=== PATIENT | female | born 1985 | race Caucasian/White ===

== ENCOUNTER → 2019-04-16 | Outpatient (CLI) | payer OTHER ==
--- NOTE | 2019-04-17 13:06 | US ---
EXAMINATION TYPE: Transabdominal DATE OF EXAM: 04/16/2019 4:50 PM COMPARISON: NONE CLINICAL HISTORY: Z36 Confirm dates. G1 EXAM PERFORMED: Transabdominal (TA) EXAM MEASUREMENTS: GESTATIONAL AGE / DATING Physician Established: Not yet established Dates by LMP: (10 weeks/1 day) EDC: 11/10/2009 Dates by First Scan: No previous. Dates by Current Scan for: (10 weeks/3 days) EDC: 11/09/2019 MATERNAL ANATOMY Uterus: 12.7 x 7.6 x 6.1cm ; possible uterine fibroid(s) in upper uterus Right Ovary: 2.8 x 2.1 x 2.1cm Left Ovary: not seen Post CDS / Adnexa: wnl Presence of free fluid: no Presence of corpus luteal cyst: not identified Presence of subchorionic bleed: small hypoechoic area seen superior subchorionic area = 1.1 x 0.9 x 0 .8cm. GESTATION / SURVEY CRL: 3.6cm (10 weeks/3 days) Yolk Sac (normal less than 6mm): 5.4mm Heart Rate: 172 bpm Rhythm: Normal IUP: single Date of LMP: 02/04/2019 Beta HcG (if available): NA Single, live IUP,10 weeks/3 days, EDC: 11/09/2019, HR 172bpm; possible subchorionic bleed imaged as s mall hypoechoic area seen superior subchorionic area = 1.1 x 0.9 x 0.8cm; lobular appearance to upper uterus may be uterine fibroid(s). IMPRESSION: 1. Single intrauterine gestation estimated at 10 weeks 3 days gestation based on the crown-rump lengt h. Cardiac activity measures 172 bpm. 2. There may be a uterine fibroid in the upper body of the uterus. 3. 1.1 x 0.9 x 0.8 cm subchorionic hemorrhage.
== END | disposition home or self-care (01) ==
LOC: RADUSWWP 16:13
PROVIDERS: ATTEND Obstetrics & Gynecology
DX: Z36.89 Encounter for other specified antenatal screening (principal); O20.8 Other hemorrhage in early pregnancy; Z3A.10 10 weeks gestation of pregnancy
CPT/HCPCS: 76801

== ENCOUNTER → 2019-06-17 | Outpatient (CLI) | payer BC, OTHER ==
--- NOTE | 2019-06-18 07:48 | US ---
EXAMINATION TYPE: US OB anatomy transabd DATE OF EXAM: 06/17/2019 COMPARISON: First trimester ultrasound April 16, 2019 HISTORY: O36.62X0 Large for dates 2nd trimester LGA TECHNIQUE: OBTA EXAM MEASUREMENTS: GESTATIONAL AGE / DATING Physician Established: (19 weeks/0 days) EDC: 11/11/2019 Dates by LMP: unknown Dates by First Scan: (19 weeks/2 days) EDC: 11/09/2019 Dates by Current Scan for: (19 weeks/6 days) EDC: 11/05/2019 SURVEY IUP: Single PLACENTA: Anterior PREVIA: No previa LULI: 15.4 cm Normal CERVICAL LENGTH (transabdominal: norm > 3.0cm): 3.2 cm BIOMETRY PRESENTATION: Vertex LIE: Longitudinal BPD: 4.5 cm 19 weeks / 5 days HC: 17.0 cm 19 weeks / 5 days AC: 14.1 cm 19 weeks / 4 days FL: 3.2 cm 20 weeks / 0 days ESTIMATED WEIGHT IN GRAMS: 307 grams ESTIMATED WEIGHT IN LBS/OZ: 0 lbs. 11 oz. WEIGHT PERCENTAGE BASED ON ESTABLISHED DATE: 84 % HC/AC: 1.2 Normal FL/AC: 23 Normal HEART RATE: 153 bpm RHYTHM: Normal ANATOMY SEEN (within normal limits): * Lateral Vent (< 1 cm) 0.8 cm * Cisterna Magna (< 1.1 cm) 0.7 cm * Nuchal Fold (< 0.6 cm) 0.2 cm * Cerebellum (varies with age) 20.8 cm Choroid Plexus (bilateral) Midline Falx Cavus Septi Pellucidi Four Chamber Heart Outflow tracts: LVOT/RVOT Stomach Situs Diaphragm Kidneys (bilateral) Bladder Cord Insert Three Vessel Cord Longitudinal Spine Transverse Spine Arms (bilateral) Legs (bilateral) ANATOMY NOT SEEN: Nose / Lips Single live intrauterine gestation is redemonstrated. No cervical thinning. Normal cephalad presentat ion seen currently. No ultrasound evidence for placenta previa. Amniotic fluid index calculated withi n normal limits. biometry measurements congruent within normal limits. Detailed anatomical surv ey shows no suspicious abnormality during real-time scanning. Suboptimal visualization of both upper extremities particularly on 2 images saved. Suboptimal evaluation of the nose and lips noted. IMPRESSION: As above.
== END | disposition home or self-care (01) ==
LOC: RADUSWWP 16:08
PROVIDERS: ATTEND Obstetrics & Gynecology
DX: O36.62X0 Maternal care for excessive fetal growth, second trimester, not applicable or unspecified (principal); Z3A.19 19 weeks gestation of pregnancy
CPT/HCPCS: 76811

== ENCOUNTER 2019-11-01 23:45 | Inpatient (IN) | payer BC, OTHER ==
[2019-11-02] MEDS ORDERED: CARBOPROST TROMETHAMINE 250 MCG/ML 1 ML AMP IM PRN (01:06)
[2019-11-02] MEDS ORDERED: TERBUTALINE 1 MG/ML VIAL SQ PRN (01:06)
[2019-11-02] MEDS ORDERED: AMPICILLIN 2,000 MG in SODIUM CHLORIDE 0.9% 100 ML IVPB STA (01:06)
[2019-11-02] MEDS ORDERED: OXYTOCIN 10 UNIT/ML 1 ML VIAL IM PRN (01:06)
[2019-11-02] MEDS ORDERED: METHYLERGONOVINE 0.2 MG/ML 1 ML AMP IM PRN (01:06)
[2019-11-02] MEDS ORDERED: LIDOCAINE 0.5% (PF) 5 MG/ML (50 ML SDV) SQ PRN (01:06)
[2019-11-02] MEDS: LACTATED RINGERS 1,000 ML IV SCH ×4 (01:57→07:07)
[2019-11-02 02:05] LABS: Basophils % (A) 0 %; Eosinophils # (A) 0.2 k/uL (0-0.7); Eosinophils % (A) 1 %; HCT 39.6 % (34.0-46.0); HGB 13.7 gm/dL (11.4-16.0); Lymphocytes # (A) 2.4 k/uL (1.0-4.8); Lymphocytes % (A) 18 %; MCH 33.1 pg (25.0-35.0); MCHC 34.5 g/dL (31.0-37.0); MCV 95.7 fL (80.0-100.0); Mean Platelet Volume 8.5; Monocytes # (A) 0.5 k/uL (0-1.0); Monocytes % (A) 4 %; Neutrophils # (A) 9.8 k/uL (1.3-7.7); Neutrophils % (A) 75 %; Platelet Count 289 k/uL (150-450); RBC 4.14 m/uL (3.80-5.40); RDW 13.9 % (11.5-15.5); WBC 13.1 k/uL (3.8-10.6)
[2019-11-02] MEDS ORDERED: fentaNYL (PF) 50 MCG/ML 5 ML AMP ONE (03:36)
[2019-11-02] MEDS ORDERED: SODIUM CHLORIDE 0.9% 100 ML BAG ONE (03:36)
[2019-11-02] MEDS ORDERED: ROPIVACAINE 5MG/ML 20ML VIAL ONE (03:36)
[2019-11-02] MEDS: AMPICILLIN 1,000 MG in SODIUM CHLORIDE 0.9% 50 ML IVPB SCH ×2 (05:50→09:09)
[2019-11-02] MEDS ORDERED: SIMETHICONE 80 MG CHEWABLE PO PRN (10:03)
[2019-11-02] MEDS ORDERED: ZOLPIDEM 5 MG TAB PO PRN (10:03)
[2019-11-02] MEDS ORDERED: WITCH HAZEL 1 EACH MED..PAD TOPICAL PRN (10:03)
[2019-11-02] MEDS ORDERED: diphenhydrAMINE 50 MG CAP PO PRN (10:03)
[2019-11-02] MEDS ORDERED: HYDROCORTISONE 2.5% RECTAL CREAM 30 GM TUBE RECTAL PRN (10:03)
[2019-11-02] MEDS ORDERED: BENZOCAINE/MENTHOL SPRAY 1 GM/SPRAY AEROSOL TOPICAL PRN (10:03)
[2019-11-02] MEDS ORDERED: IBUPROFEN 600 MG TAB PO PRN (10:03)
[2019-11-02] MEDS ORDERED: LANOLIN CREAM 5 GM TUBE TOPICAL PRN (10:03)
[2019-11-02] MEDS ORDERED: diphenhydrAMINE 25 MG CAP PO PRN (10:03)
[2019-11-02] MEDS ORDERED: ACETAMINOPHEN TAB 325 MG TAB PO PRN (10:03)
[2019-11-02] MEDS ORDERED: OXYTOCIN 20 UNITS/1000 ML NS 1,000 ML IV SCH (10:15)
[2019-11-02] MEDS ORDERED: SENNOSIDES-DOCUSATE SODIUM 1 EACH TAB PO SCH (20:00)
[2019-11-03 05:43] LABS: Basophils % (A) 0 %; Eosinophils # (A) 0.1 k/uL (0-0.7); Eosinophils % (A) 1 %; HCT 29.2 % (34.0-46.0); Lymphocytes # (A) 2.3 k/uL (1.0-4.8); Lymphocytes % (A) 16 %; MCH 32.7 pg (25.0-35.0); MCHC 33.8 g/dL (31.0-37.0); MCV 96.7 fL (80.0-100.0); Mean Platelet Volume 8.4; Monocytes # (A) 0.4 k/uL (0-1.0); Monocytes % (A) 3 %; Neutrophils # (A) 11.6 k/uL (1.3-7.7); Neutrophils % (A) 79 %; Platelet Count 227 k/uL (150-450); RBC 3.02 m/uL (3.80-5.40); WBC 14.7 k/uL (3.8-10.6)
[2019-11-03 05:53] LABS: HGB 9.9 gm/dL (11.4-16.0)
[2019-11-03 08:14] VITALS: BP 121/80; PULSE 77; RESP 18; TEMP 97.8
--- NOTE | 2019-11-03 08:22 | P.HPOB ---
History of Present Illness H&P Date: 11/02/19 Chief Complaint: Normal labor 34-year-old presented at 38 weeks and 5 days in active labor. heart tones category 1. She was admitted by Dr. Nolan overnight. When I presented to the hospital she was 7 cm dilated, 90% effaced, and -2 station. She is coy every 2-4 minutes and feeling pressure despite an epidural. Review of Systems All systems: negative Constitutional: Denies chills, Denies fever Eyes: denies blurred vision, denies pain Ears, nose, mouth and throat: Denies headache, Denies sore throat Cardiovascular: Denies chest pain, Denies shortness of breath Respiratory: Denies cough Gastrointestinal: Denies abdominal pain, Denies diarrhea, Denies nausea, Denies vomiting Genitourinary: Denies dysuria, Denies hematuria Musculoskeletal: Denies myalgias Integumentary: Denies pruritus, Denies rash Neurological: Denies numbness, Denies weakness Psychiatric: Denies anxiety, Denies depression Endocrine: Denies fatigue, Denies weight change Past Medical History Past Medical History: No Reported History Additional Past Medical History / Comment(s): Obstetric history: She's had care with me since the first trimester. Blood type O+, rubella immune, is B-, GBS positive. History of Any Multi-Drug Resistant Organisms: None Reported Past Surgical History: No Surgical Hx Reported Past Anesthesia/Blood Transfusion Reactions: No Reported Reaction Past Psychological History: No Psychological Hx Reported Smoking Status: Never smoker Past Alcohol Use History: None Reported Past Drug Use History: None Reported - Past Family History Father Family Medical History: No Reported History Medications and Allergies Home Medications Medication Instructions Recorded Confirmed Type Pnv No.95/Ferrous Fum/Folic AC 1 each PO DAILY 11/01/19 11/01/19 History [ Multivitamin Tablet] Allergies Allergy/AdvReac Type Severity Reaction Status Date / Time No Known Allergies Allergy Verified 11/01/19 23:53 Exam Osteopathic Statement: *. No significant issues noted on an osteopathic structural exam other than those noted in the History and Physical/Consult. Vital Signs Temp Pulse Resp BP Pulse Ox 11/03/19 08:00 97.8 F 77 18 121/80 98 11/03/19 04:00 97.7 F 78 16 130/75 11/03/19 00:00 98.0 F 76 18 132/76 11/02/19 22:20 89 18 11/02/19 20:00 97.9 F 89 18 125/82 11/02/19 16:00 98.3 F 82 18 124/82 11/02/19 11:15 98.4 F 89 18 131/70 11/02/19 10:45 98.8 F 92 18 111/70 11/02/19 10:15 98.4 F 80 18 124/72 11/02/19 10:00 90 119/65 11/02/19 09:45 99.1 F 83 18 124/70 11/02/19 09:30 98.6 F 83 18 124/70 11/02/19 09:15 98.3 F 83 18 123/61 Intake and Output 11/02/19 11/03/19 11/03/19 22:59 06:59 14:59 Other: # Voids 2 2 Heart: Regular rate and rhythm Lungs: Clear to auscultation bilaterally Abdomen: Soft, nontender Extremities: Negative Homans sign Results Result Diagrams: 11/03/19 05:28 Abnormal Lab Results - Last 24 Hours (Table) 11/03/19 Range/Units 05:28 WBC 14.7 H (3.8-10.6) k/uL RBC 3.02 L (3.80-5.40) m/uL Hgb 9.9 L D (11.4-16.0) gm/dL Hct 29.2 L (34.0-46.0) % Neutrophils # 11.6 H (1.3-7.7) k/uL Assessment and Plan (1) Normal labor Current Visit: Yes Status: Acute Code(s): O80 - ENCOUNTER FOR FULL-TERM UNCOMPLICATED DELIVERY; Z37.9 - OUTCOME OF DELIVERY, UNSPECIFIED SNOMED Code(s): 81831611 Plan: 1. Expectant management 2. She has been started on antibiotics for GBS prophylaxis 3. Anticipate normal vaginal delivery
--- NOTE | 2019-11-03 08:26 | P.PROBDLV ---
Vaginal Delivery Note - . Vaginal Delivery Note: 34-year-old presents at 38 weeks and 5 days in active labor. heart tones were category 1. She was started on IV antibiotics and given an epidural for pain control. She did have a deceleration after the epidural. Dr. Nolan went in to see her, perform scalp stimulation and the baby did reactive in a positive fashion. Amniotomy was performed at 7:25 AM and meconium stained fluid was seen. Her cervix was completely dilated by 844. She pushed, and delivered a viable male infant over intact perineum under epidural anesthesia at 8:50 AM. Head delivered OA, anterior shoulder delivered gentle downward guidance of a posterior shoulder and rest of body. Nose and mouth bulb suctioned, cord clamped and cut, infant placed on mother's abdomen. Apgars 9, 9, weight 7 lbs. 11 oz. Placenta delivered spontaneously, intact with three-vessel cord at 9:01 AM. Vagina, cervix, perineum inspected. A left lateral second-degree laceration was repaired with 2-0 Vicryl and 3-0 Vicryl. Estimated blood loss 350 mL. Mother and baby in stable condition.
--- NOTE | 2019-11-03 08:28 | P.DS ---
Providers Date of admission: 11/02/19 01:25 Expected date of discharge: 11/03/19 Attending physician: Radha Gordillo Primary care physician: Stated None - Discharge Diagnosis(es) (1) Normal labor Current Visit: Yes Status: Resolved (2) Normal vaginal delivery Current Visit: Yes Status: Acute Hospital Course: Patient presented in active labor. She underwent a normal vaginal delivery. course was uncomplicated. She'll be discharged home day #1 in stable condition to follow-up with me in 6 weeks. Plan - Discharge Summary New Discharge Prescriptions: New Ibuprofen [Motrin] 600 mg PO Q6HR PRN #30 tab PRN Reason: Mild Pain Or Fever >= 100.5 No Action Pnv No.95/Ferrous Fum/Folic AC [ Multivitamin Tablet] 1 each PO DAILY Discharge Medication List Pnv No.95/Ferrous Fum/Folic AC [ Multivitamin Tablet] 1 each PO DAILY 11/01/19 [History] Ibuprofen [Motrin] 600 mg PO Q6HR PRN #30 tab 11/03/19 [Rx] Follow up Appointment(s)/Referral(s): Radha Gordillo DO [Doctor of Osteopathic Medicine] - 6 Weeks Discharge Disposition: HOME SELF-CARE
== END 2019-11-03 11:30 | disposition home or self-care (01) | DRG 807 ==
LOC: FBPOP 23:45 → 4FBP 11-02 01:25
PROVIDERS: ADMIT Obstetrics & Gynecology; ATTEND Obstetrics & Gynecology
PROC: 3E0R3BZ Introduction of Anesthetic Agent into Spinal Canal, Percutaneous Approach (ICD-10-PCS; principal; 2019-11-03)
PROC: 0KQM0ZZ Repair Perineum Muscle, Open Approach (ICD-10-PCS; principal; 2019-11-03)
PROC: 10E0XZZ Delivery of Products of Conception, External Approach (ICD-10-PCS; principal; 2019-11-03)
PROC: 00HU33Z Insertion of Infusion Device into Spinal Canal, Percutaneous Approach (ICD-10-PCS; principal; 2019-11-03)
DX: O77.0 Labor and delivery complicated by meconium in amniotic fluid (principal); Z37.0 Single live birth; O70.1 Second degree perineal laceration during delivery; O99.824 Streptococcus B carrier state complicating childbirth; Z3A.38 38 weeks gestation of pregnancy
CPT/HCPCS: 59025; 85025; 86850; 86900; 86901; 99213

== ENCOUNTER 2020-09-25 | Emergency (ER) | payer BC, OTHER ==
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
== END 2020-09-25 18:04 | disposition home or self-care (01) ==
CPT/HCPCS: 99283

== ENCOUNTER 2021-03-24 03:25 | Outpatient (CLI) | payer BC ==
[2021-03-24 06:21] VITALS: BP 125/85; PULSE 92; RESP 16; TEMP 96.7
--- NOTE | 2021-03-28 07:47 | P.MSEPDOC ---
Presenting Problems - Arrival Data Date of Arrival on Unit: 03/24/21 Time of Arrival on Unit: 03:25 Mode of Transport: Ambulatory - Complaint OB-Reason for Admission/Chief Complaint: Vaginal Bleeding Medical History - Information : 2 Para: 1 Term: 1 : 0 Abortions: Spontaneous or Elective: 0 Number of Living Children: 1 - Gestational Age Gestational Age by AMY (wks/days): 38 Weeks and 3 Days Review of Systems - Review of Systems Constitutional: No problems Breast: No problems ENT: No problems Cardiovascular: No problems Respiratory: No problems Gastrointestinal: No problems Genitourinary: No problems Musculoskeletal: No problems Neurological: No problems Skin: No problems Vital Signs - Temperature Temperature: 96.7 F Temperature Source: Temporal Artery Scan - Pulse Right Supine Brachial Pulse Rate: 92 Pulse Assessment Method: Automatic Cuff - Respirations Respiratory Rate: 16 Oxygen Delivery Method: Room Air - Blood Pressure Right Arm Supine Blood Pressure: 125/85 Blood Pressure Mean: 98 Blood Pressure Source: Automatic Cuff Medical Screen Scoring - Cervical Exam Dilation (cm): 3 Effacement (%): 70 Station: -2 Membranes: Intact - Uterine Contractions Frequency From (mins): 6 Frequency To (mins): 10 Duration From (seconds): 40 Duration To (seconds): 70 Intensity: Moderate Resting: Soft to palpation - Assessment - Baby A Baseline FHR: 135 Heart Rate - NICHD Category: Category I (Normal) NST: Reactive Physician Notification - Physician Notified Physician Notified Date: 03/24/21 Physician Notified Time: 04:10 Physician: Kapil Huerta Order Received: Yes (Observe for 1 hour re-check and call back) Maternal Triage Index - Maternal Triage Index Presenting for scheduled procedure w/no complaint: No - Stat/Priority 1 Stat Priority 1: No - Urgent/Priority 2 Urgent Priority 2: Yes Provider Notified: Kapil Huerta Provider Notified Time: 04:10 Criteria Met for Priority 2: States active bleeding - Prompt/Priority 3 Prompt Priority 3: No - Non-Urgent/Priority 4 Non-Urgent Priority 4: No Disposition - Disposition OB Disposition: Observe, Discharge to home Discharge Date: 03/24/21 Discharge Time: 05:25 I agree with the RN Medical Screening Exam: Yes Case reviewed; plan agreed upon as documented in EMR&OBIX.: Yes Diagnosis: FALSE LABOR AT OR AFTER 37 COMPLETED WEEKS OF GESTATION
== END 2021-03-24 05:25 | disposition home or self-care (01) ==
LOC: FBPOP 03:25
PROVIDERS: ATTEND Obstetrics & Gynecology
DX: O47.1 False labor at or after 37 completed weeks of gestation (principal); Z3A.38 38 weeks gestation of pregnancy
CPT/HCPCS: 59025; 99214

== ENCOUNTER 2021-03-24 18:33 | Inpatient (IN) | payer BC ==
[2021-03-24] MEDS ORDERED: OXYTOCIN 10 UNIT/ML 1 ML VIAL IM PRN (18:59)
[2021-03-24] MEDS ORDERED: LIDOCAINE 0.5% (PF) 5 MG/ML (50 ML SDV) SQ PRN (18:59)
[2021-03-24] MEDS ORDERED: TERBUTALINE 1 MG/ML VIAL SQ PRN (18:59)
[2021-03-24] MEDS ORDERED: CARBOPROST TROMETHAMINE 250 MCG/ML 1 ML AMP IM PRN (18:59)
[2021-03-24] MEDS ORDERED: METHYLERGONOVINE 0.2 MG/ML 1 ML AMP IM PRN (18:59)
[2021-03-24 19:09] LABS: Basophils % (A) 0 %; Eosinophils # (A) 0.1 k/uL (0-0.7); Eosinophils % (A) 1 %; HCT 33.8 % (34.0-46.0); HGB 11.8 gm/dL (11.4-16.0); Lymphocytes % (A) 15 %; MCH 33.9 pg (25.0-35.0); MCV 96.9 fL (80.0-100.0); Mean Platelet Volume 7.8; Monocytes # (A) 0.3 k/uL (0-1.0); Monocytes % (A) 2 %; Neutrophils # (A) 10.4 k/uL (1.3-7.7); Neutrophils % (A) 80 %; Platelet Count 262 k/uL (150-450); RBC 3.49 m/uL (3.80-5.40); RDW 14.9 % (11.5-15.5); WBC 13.1 k/uL (3.8-10.6)
[2021-03-24] MEDS: LACTATED RINGERS 1,000 ML IV SCH ×2 (19:15→20:05)
[2021-03-24] MEDS ORDERED: AMPICILLIN 2,000 MG in SODIUM CHLORIDE 0.9% 100 ML IVPB STA (19:31)
--- NOTE | 2021-03-24 19:32 | P.HPOB ---
History of Present Illness H&P Date: 03/24/21 Chief Complaint: Contractions This patient is a pleasant 35-year-old 2 para 1 female estimated date of confinement 04/04/2021 estimated gestational age 38-3/7 weeks who presents to labor and delivery with complaint of contractions. Patient was here earlier this morning and was 3 cm dilated is now 8-9 cm dilated to be in active labor. care is per Dr. Gordillo. is complicated by advanced for maternal age and apparently patient has declined testing. Most recent ultrasound on March 07 showed estimated weight of 5 lbs. 15 oz. which is the 39th percentile. Review of Systems Genitourinary: Reports Menstruation: Reports amenorrhea Past Medical History Past Medical History: No Reported History Additional Past Medical History / Comment(s): Previous term vaginal delivery. She had a positive group B strep with that History of Any Multi-Drug Resistant Organisms: None Reported Past Surgical History: No Surgical Hx Reported Past Anesthesia/Blood Transfusion Reactions: No Reported Reaction Smoking Status: Never smoker - Past Family History Father Family Medical History: No Reported History Medications and Allergies Home Medications Medication Instructions Recorded Confirmed Type Pnv No.95/Ferrous Fum/Folic AC 1 each PO DAILY 11/01/19 03/24/21 History [ Multivitamin Tablet] Allergies Allergy/AdvReac Type Severity Reaction Status Date / Time No Known Allergies Allergy Verified 03/24/21 18:59 Exam Intake and Output 03/24/21 03/24/21 03/24/21 06:59 14:59 22:59 Other: Weight 93.894 kg - OBG Physical Exam Abdomen: bowel sounds normal, no diffuse tenderness, no bruit present, no guarding noted, no hepatomegaly, no splenomegaly, no mass Vulva: both: normal Vagina: normal moisture, no discharge Cervix: no lesion (Cervix is 8 cm dilated and -1 station), no discharge Uterus: enlarged Results blood work shows she is O positive, rubella immune, RPR nonreactive, hepatitis B negative, group B strep was negative (however does have a history of positive strep first ). Patient apparently declined genetic testing Result Diagrams: 03/24/21 19:00 Abnormal Lab Results - Last 24 Hours (Table) 03/24/21 Range/Units 19:00 WBC 13.1 H (3.8-10.6) k/uL RBC 3.49 L (3.80-5.40) m/uL Hct 33.8 L (34.0-46.0) % Neutrophils # 10.4 H (1.3-7.7) k/uL Assessment and Plan Assessment: This is a pleasant 35-year-old 2 para 1 female 38-3/7 weeks gestation admitted to labor and delivery in active labor. Patient is a history of positive group B strep with her first therefore we'll treat prophylactically with antibiotics. Patient does request epidural for pain control will place that prior to rupture membranes. Anticipate vaginal delivery. (1) 38 weeks gestation of Current Visit: Yes Status: Acute Code(s): Z3A.38 - 38 WEEKS GESTATION OF SNOMED Code(s): 30097254 (2) History of group B Streptococcus (GBS) infection Current Visit: Yes Status: Acute Code(s): Z86.19 - PERSONAL HISTORY OF OTHER INFECTIOUS AND PARASITIC DISEASES SNOMED Code(s): 489642565 (3) Normal labor Current Visit: No Status: Resolved Code(s): O80 - ENCOUNTER FOR FULL-TERM UNCOMPLICATED DELIVERY; Z37.9 - OUTCOME OF DELIVERY, UNSPECIFIED SNOMED Code(s): 77010234 (4) Elderly multigravida in third trimester Current Visit: Yes Status: Acute Code(s): O09.523 - SUPERVISION OF ELDERLY MULTIGRAVIDA, THIRD TRIMESTER SNOMED Code(s): 752873528
[2021-03-24] MEDS ORDERED: fentaNYL (PF) 50 MCG/ML 5 ML AMP ONE (19:38)
[2021-03-24] MEDS ORDERED: SODIUM CHLORIDE 0.9% 100 ML BAG ONE (19:38)
[2021-03-24] MEDS ORDERED: ROPIVACAINE 5MG/ML 20ML VIAL ONE (19:38)
[2021-03-24] MEDS ORDERED: diphenhydrAMINE 50 MG/ML 1 ML VIAL IVP PRN (22:40)
[2021-03-24] MEDS ORDERED: ZOLPIDEM 5 MG TAB PO PRN (22:40)
[2021-03-24] MEDS ORDERED: ACETAMINOPHEN TAB 325 MG TAB PO PRN (22:40)
[2021-03-24] MEDS ORDERED: bisacodyL 10 MG SUPP RECTAL PRN (22:40)
[2021-03-24] MEDS ORDERED: LANOLIN CREAM 5 GM TUBE TOPICAL PRN (22:40)
[2021-03-24] MEDS ORDERED: SENNOSIDES-DOCUSATE SODIUM 1 EACH TAB PO PRN (22:40)
[2021-03-24] MEDS ORDERED: HYDROCORTISONE 2.5% RECTAL CREAM 30 GM TUBE RECTAL PRN (22:40)
[2021-03-24] MEDS ORDERED: SIMETHICONE 80 MG CHEWABLE PO PRN (22:40)
[2021-03-24] MEDS ORDERED: BENZOCAINE/MENTHOL SPRAY 1 GM/SPRAY AEROSOL TOPICAL PRN (22:40)
[2021-03-24] MEDS ORDERED: diphenhydrAMINE 25 MG CAP PO PRN (22:40)
[2021-03-24] MEDS ORDERED: OXYTOCIN 30 UNITS/500 ML NS 30 UNIT in SALINE 1 500ML.BAG IV SCH (22:45)
--- NOTE | 2021-03-24 22:45 | P.PROBDLV ---
Vaginal Delivery Note - . Vaginal Delivery Note: Normal spontaneous vaginal delivery viable female Apgars 8 and 9 delivery time was 2218 hrs. Please see dictated H&P for intimate details of this patient's admission. Brief summary this is a pleasant 35-year-old 2 para 1 female 38-3/7 weeks admitted to labor and delivery in active labor. Patient on arrival is about 8 cm dilated and she is given IV antibiotics due to history of positive strep with a previous , although she was negative this . Patient does request an epidural for pain control and this is given with good relief. With this done we then have artificial rupture membranes for clear fluid. Labor continues to progress and patient pushes the head to the perineum. Posterior perineum is supported we have controlled delivery of the infant's head over the intact perineum. Infant is straight occiput anterior presentation. Mouth and nares are bulb suctioned. There is no evidence of nuchal cord. With gentle downward traction we then have deliver the anterior and posterior shoulder and rest this infant's body. This is a vigorous viable female Apgars are 8 and 9 delivery time was 2218 hrs. After delivery of the infant the infant is late the mother's abdomen. Umbilical Cord Is Done Pulsating Is Doubly Clamped and Cut This Appeared to Be Trivascular. Placenta Is Then Spontaneously Delivered Intact. Estimated Blood Loss Is 200 ML. Inspection of Perineum Shows a Small First-Degree Laceration and This Was Repaired with 3-0 Vicryl Usual Fashion. Excellent reapproximation is noted. All counts are correct 3. There are no complications. Infant and mother are stable delivery room.
[2021-03-24] MEDS ORDERED: AMPICILLIN 1,000 MG in SODIUM CHLORIDE 0.9% 50 ML IVPB SCH (23:45)
[2021-03-25] MEDS: IBUPROFEN 600 MG TAB PO PRN ×3 (04:13→22:48)
--- NOTE | 2021-03-25 06:52 | P.PNOBGVD ---
Subjective - Subjective Patient reports: Reports appetite normal, Reports voiding normally, Reports pain well controlled, Reports ambulating normally : doing well Objective - Latest Vital Signs Latest vital signs: Vital Signs Temp Pulse Resp BP Pulse Ox 03/25/21 04:00 98.0 F 77 16 125/79 99 03/25/21 00:42 97.4 F L 94 16 120/59 03/25/21 00:12 100 14 128/58 03/24/21 23:42 99 18 122/66 99 03/24/21 23:27 83 16 109/57 03/24/21 23:12 96 14 133/68 03/24/21 22:57 93 16 127/69 03/24/21 22:42 97.8 F 100 16 126/59 03/24/21 18:59 97.2 F L 98 18 132/73 98 Intake and Output 03/24/21 03/24/21 03/25/21 14:59 22:59 06:59 Intake Total 167 Output Total 50 Balance 117 Intake: Intake, IV Titration 167 Amount Oxytocin 30 Units/500 ml 167 Ns 30 unit In Saline 1 500ml.bag @ Per Protocol IV .Q0M [facility] Rx#:[id number] Output: Urine 50 Other: # Voids 2 1 Weight 93.894 kg - Exam Lungs: bilateral: normal Chest: Normal S1, Normal S2 Extremities: Present: normal Abdomen: Present: normal appearance, soft Uterus: Present: normal, firm - Labs Labs: Abnormal Lab Results - Last 24 Hours (Table) 03/24/21 Range/Units 19:00 WBC 13.1 H (3.8-10.6) k/uL RBC 3.49 L (3.80-5.40) m/uL Hct 33.8 L (34.0-46.0) % Neutrophils # 10.4 H (1.3-7.7) k/uL Assessment and Plan Assessment: day #1. Patient is resting without complaints. Vital signs are stable she is afebrile. Uterus is firm nontender and she is having normal lochia. My impression this is a normal course. Plan is to continue routine care discharge home tomorrow (1) 38 weeks gestation of Current Visit: Yes Status: Acute Code(s): Z3A.38 - 38 WEEKS GESTATION OF SNOMED Code(s): 67987175 (2) History of group B Streptococcus (GBS) infection Current Visit: Yes Status: Acute Code(s): Z86.19 - PERSONAL HISTORY OF OTHER INFECTIOUS AND PARASITIC DISEASES SNOMED Code(s): 075716001 (3) Normal labor Current Visit: No Status: Resolved Code(s): O80 - ENCOUNTER FOR FULL-TERM UNCOMPLICATED DELIVERY; Z37.9 - OUTCOME OF DELIVERY, UNSPECIFIED SNOMED Code(s): 81069661 (4) Elderly multigravida in third trimester Current Visit: Yes Status: Acute Code(s): O09.523 - SUPERVISION OF ELDERLY MULTIGRAVIDA, THIRD TRIMESTER SNOMED Code(s): 133881784
[2021-03-26 00:26] VITALS: RESP 18
--- NOTE | 2021-03-26 06:04 | P.PNOBGVD ---
Subjective - Subjective Patient reports: Reports appetite normal, Reports voiding normally, Reports pain well controlled, Reports ambulating normally : doing well Objective - Latest Vital Signs Latest vital signs: Vital Signs Temp Pulse Resp BP Pulse Ox 03/26/21 00:00 97.8 F 74 18 119/81 98 03/25/21 15:59 97.6 F 87 16 124/80 03/25/21 12:00 98 F 88 16 122/70 03/25/21 08:00 98.5 F 82 16 117/79 - Exam Lungs: bilateral: normal Chest: Normal S1, Normal S2 Extremities: Present: normal Abdomen: Present: normal appearance, soft Uterus: Present: normal, firm Assessment and Plan Assessment: day #2. Patient is resting without complaints. Vital signs are stable she is afebrile. Uterus is firm nontender and she is having normal lochia. My impression this is a normal course. Plan is to continue routine care and discharge home later today. (1) 38 weeks gestation of Current Visit: Yes Status: Acute Code(s): Z3A.38 - 38 WEEKS GESTATION OF SNOMED Code(s): 03064480 (2) History of group B Streptococcus (GBS) infection Current Visit: Yes Status: Acute Code(s): Z86.19 - PERSONAL HISTORY OF OTHER INFECTIOUS AND PARASITIC DISEASES SNOMED Code(s): 673037202 (3) Normal labor Current Visit: No Status: Resolved Code(s): O80 - ENCOUNTER FOR FULL-TERM UNCOMPLICATED DELIVERY; Z37.9 - OUTCOME OF DELIVERY, UNSPECIFIED SNOMED Code(s): 20132723 (4) Elderly multigravida in third trimester Current Visit: Yes Status: Acute Code(s): O09.523 - SUPERVISION OF ELDERLY MULTIGRAVIDA, THIRD TRIMESTER SNOMED Code(s): 700290332
--- NOTE | 2021-03-26 06:08 | P.DS ---
Providers Date of admission: 03/24/21 18:55 Expected date of discharge: 03/26/21 Attending physician: Hoang Edgar Primary care physician: Stated None - Discharge Diagnosis(es) (1) 38 weeks gestation of Current Visit: Yes Status: Acute (2) History of group B Streptococcus (GBS) infection Current Visit: Yes Status: Acute (3) Normal labor Current Visit: No Status: Resolved (4) Elderly multigravida in third trimester Current Visit: Yes Status: Acute Hospital Course: Please see dictated H&P for intimate details of this patient's admission. Brief summary this pleasant 35-year-old 2 para 1 female 8-1/2 weeks gestation admitted to labor and delivery in active labor. Patient quickly goes on have a vaginal delivery viable female infant. Please see dictated delivery note. day #2 patient's felt be stable for discharge home follow up with Dr. Gordillo and 6 weeks. Procedures: Normal spontaneous vaginal delivery Patient Condition at Discharge: Good Plan - Discharge Summary New Discharge Prescriptions: New Ibuprofen [Motrin] 600 mg PO Q6HR PRN #30 tab PRN Reason: Pain No Action Pnv No.95/Ferrous Fum/Folic AC [ Multivitamin Tablet] 1 each PO DAILY Discharge Medication List Pnv No.95/Ferrous Fum/Folic AC [ Multivitamin Tablet] 1 each PO DAILY 11/01/19 [History] Ibuprofen [Motrin] 600 mg PO Q6HR PRN #30 tab 03/26/21 [Rx] Follow up Appointment(s)/Referral(s): Radha Gordillo DO [Doctor of Osteopathic Medicine] - 6 Weeks Patient Instructions/Handouts: Vaginal Delivery (DC) Activity/Diet/Wound Care/Special Instructions: No intercourse or anything per vagina for 6 weeks. Please call if any fever, chills, excessive vaginal bleeding, and/or abdominal pain. Discharge Disposition: HOME SELF-CARE
[2021-03-26 08:49] VITALS: BP 115/78; PULSE 99; TEMP 98.4
== END 2021-03-26 11:00 | disposition home or self-care (01) | DRG 807 ==
LOC: FBPOP 18:33 → 4FBP 18:55
PROVIDERS: ADMIT Obstetrics & Gynecology; ATTEND Obstetrics & Gynecology
PROC: 10E0XZZ Delivery of Products of Conception, External Approach (ICD-10-PCS; principal; 2021-03-24)
PROC: 0HQ9XZZ Repair Perineum Skin, External Approach (ICD-10-PCS; 2021-03-24)
PROC: 10907ZC Drainage of Amniotic Fluid, Therapeutic from Products of Conception, Via Natural or Artificial Opening (ICD-10-PCS; 2021-03-24)
DX: O99.824 Streptococcus B carrier state complicating childbirth (principal); Z37.0 Single live birth; O70.0 First degree perineal laceration during delivery; Z3A.38 38 weeks gestation of pregnancy
CPT/HCPCS: 85025; 86850; 86900; 86901